=== PATIENT | female | born 1940 | race Caucasian/White ===

== ENCOUNTER 2016-12-09 16:50 | Inpatient (IN) | payer OTHER, MEDICARE, BC ==
[~2016-12-09] VITALS: Ht 170.2 cm; Wt 78.5 kg
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
--- NOTE | ~2016-12-09 | ENPV ---
Carotid Duplex Study Demographics Patient Name LEE ZAPIEN Date of Study 12/10/2016 Patient Number [id number] Gender Female Date of 1940 Age 76 Visit Number [id number] Height Accession Number [id number] Weight Room Number G6335 BSA BMI Referring Melina Moura Interpreting Danial Price MD Physician Physician Physician Ordering Physician Melina Moura Compliance Representative Software Configuration Engineer Bong Lopez BS, RT Conclusions Summary The right internal carotid artery has mild, 1-39%, plaque and stenosis. The left internal carotid artery has mild, 1-39%, plaque and stenosis. The right vertebral artery is present with antegrade flow. The left vertebral artery is present with antegrade flow. Calcific plaque at the bulb bilaterally. Procedure Type of Study: Cerebral:Carotid, Carotid Doppler Bilateral. Indications for Study:Syncope. Appropriate Use Criteria:9 Patient Status:Routine. Study Location:Inpatient Portable. Technical Quality:Adequate visualization. Velocities are measured in cm/s ; Diameters are measured in cm Carotid Right Measurements Carotid Left Measurements + +--------+--------+ + + + +--------+ --------+ + + !Location !PSV !EDV !Angle !%Stenosis ! !Location !PSV ! EDV !Angle !%Stenosis ! + +--------+--------+ + + + +--------+ --------+ + + !Prox CCA !117 !21 !60 ! ! !Prox CCA !131 ! 30 !60 ! ! + +--------+--------+ + + + +--------+ --------+ + + !Dist CCA !90 !22 !60 ! ! !Dist CCA !91 ! 23 !60 ! ! + +--------+--------+ + + + +--------+ --------+ + + !Prox ICA !99 !36 !60 ! ! !Prox ICA !84 ! 33 !60 ! ! + +--------+--------+ + + + +--------+ --------+ + + !Dist ICA !122 !33 !60 ! ! !Dist ICA !88 ! 34 !60 ! ! + +--------+--------+ + + + +--------+ --------+ + + !Prox ECA !107 ! !60 ! ! !Prox ECA !95 ! !60 ! ! + +--------+--------+ + + + +--------+ --------+ + + !Vertebral !59 ! !60 ! ! !Vertebral !43 ! !60 ! ! + +--------+--------+ + + + +--------+ --------+ + + !Subclavian !108 ! !60 ! ! !Subclavian !164 ! !60 ! ! + +--------+--------+ + + + +--------+ --------+ + + - There is antegrade vertebral flow noted on the right side. - There is antegrade verte bral flow noted on the left side. - Add'l Measurements:ICAPSV/CCAPSV 1.04.ICAEDV/CCAEDV 1.7. - Add'l Measurements:ICAPS V/CCAPSV 0.67.ICAEDV/CCAEDV 1.17. Signature dtt: REBA OSBORN dtd: 12/10/16 0844 Physician Self Edit
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
--- NOTE | ~2016-12-09 | ECHO ---
Transthoracic Echocardiography Report (TTE) Demographics Patient Name LEE ZAPIEN Date of Study 12/10/2016 Patient Number [id number] Visit Number [id number] Date of 1940 Room Number G6335 Gender Female Number Age 76 year(s) Referring Antonia Lopez Ward Supervisor Angélica Gonzalez RVT, Physician RDCS Physician Interpreting June Chicas Supervisor [employer] Physician A Supervising Ordering Melina Moura MD/MLP Physician Nurse Stress Acrobatic Dancer Conclusions Contractility Score Summary Normal Left Ventricular contractility was noted. Summary Exam done with patient laying supine. The estimated left ventricular ejection fraction is 60-65%. Mild concentric left ventricular hypertrophy. Diastolic assessment reveals Grade I diastolic dysfunction. Mild tricuspid regurgitation by color Doppler. There is mild pulmonary hypertension. The pulmonary pressure (RVSP) is 44 mmHg. Procedure Type of Study TTE procedure:2D Echocardiogram. Procedure Date Date: 12/10/2016 Start: 08:21 AM Study Location: Inpatient Portable Technical Quality: Adequate visualization Indications:Syncope. Appropriate Use Criteria: 8 Patient Status: Routine HR: 70 bpm BP: 156/76 mmHg M-Mode/2D Measurements LV Diastolic Dimension: 3.76 cm LV Systolic Dimension: 2.72 cm LV Septum Diastolic: 1.19 cm LV PW Diastolic: 1.17 cm AO Root Dimension: 2.4 cm Cardiac Output: 6.52 l/min AV Cusp Separation: 1.9 cm RV Diastolic Dimension: 2.45 cm LA Dimension: 1.8 cm LA volume: 41 ml LVOT: 2.2 cm RV Base: 3.49 cm LVOT VTI: 24.5 cm RV Mid: 2.82 cm LV Stroke volume: 93.09 ml RV Length: 7.83 cm TAPSE: 3.13 cm TDI-S': 13.3 cm/s Doppler Measurements AV Peak Velocity: 1.36 m/s MV Peak E-Wave: 0.55 m/s AV Peak Gradient: 7.4 mmHg MV Peak A-Wave: 0.76 m/s AV Mean Gradient: 5 mmHg MV E/A Ratio: 0.73 LVOT Peak Velocity: 1.15 m/s MV P1/2t: 66 msec TR Gradient:38.69 mmHg PV Peak Velocity: 1.07 m/s Estimated RAP:5 mmHg PV Peak Gradient: 4.58 mmHg Estimated RVSP: 44 mmHg Estimated PASP: 43.69 mmHg E' Septal Velocity: 0.07 m/s A' Septal Velocity: 0.11 m/s E' Lateral Velocity: 0.1 m/s A' Lateral Velocity: 0.15 m/s Findings Left Ventricle Mild concentric left ventricular hypertrophy. Diastolic assessment reveals Grade I diastolic dysfunction. Right Ventricle Normal right ventricle structure and function. Left Atrium Normal left atrial size. There is no evidence of patent foramen ovale or atrial septal defect by color Doppler. Right Atrium Normal right atrial size. IVC measures 2.22 cm with inspiratory collapse. Mitral Valve Normal mitral valve structure and function. Trivial mitral regurgitation by color Doppler. Aortic Valve Normal aortic valve structure and function. Tricuspid Valve Mild tricuspid regurgitation by color Doppler. There is mild pulmonary hypertension. The pulmonary pressure (RVSP) is 44 mmHg. Pulmonic Valve Normal pulmonic valve structure and function. Pericardial Effusion No evidence of pericardial effusion. Miscellaneous Visualized portions of the aortic root and ascending aorta appear normal in size. Pleural Effusion No evidence of pleural effusion. Contractility Score LV regional wall motion:(0-Non visualized 1-Normal 2-Hypokinesis 3-Akinesis 4-Dyskinesis 5-Aneurysm) Signature dtt: Arvin Watkins dtd: 12/10/16 0821 Physician Self Edit
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
--- NOTE | ~2016-12-09 | OR ---
PATIENT'S NAME: LEE ZAPIEN [facility] AGE: 76 Y [address] ROOM: [place] [address] LOCATION: GPCU ADMIT DATE: 12/09/2016 OR/Procedure Report DISCHARGE DATE: FAMILY PHYSICIAN: Shu Knight MD ATTENDING PHYSICIAN: Martell CAMPOS SURGEON: Calderon Tamayo MD FOOD DEMONSTRATOR: DATE OF PROCEDURE: 12/10/2016 PREPROCEDURE DIAGNOSIS: Symptomatic bradycardia with long pauses, syncopal episodes. POSTPROCEDURE DIAGNOSIS: Symptomatic bradycardia with long pauses, syncopal episodes. PROCEDURE: Placement of DDDR [employer] MRI DR pacemaker, model #:L111, RV gram. ANESTHESIA: Monitored anesthesia care with local. PROCEDURE: The patient's upper chest was prepped and draped. A small 4 cm incision was made in the subclavicular area and an inferiorly based pocket was created with cautery. An 18-gauge needle was then passed into the subclavian vein and a 035 J-wire passed. A 9-[place] sheath was passed over this. I had a lot of difficulty obtaining access to the RV. The wire and lead moved into the pulmonary artery easily, but I was not able to get into the apex. I therefore shot through the sheath in the AP and CAVANAUGH projections, 20 mL of full- strength contrast to evaluate the anatomy of the RA, the tricuspid valve area, and the RV. With this road mapping, I saw that the RV was quite small and I was able to steer the ventricular lead into the RV apex after this. The screw was extended and the parameters checked and were good. The J-wire was then passed through the 9-[place]ian sheath, which was then peeled away and the 6- [place] sheath was placed over the wire. The wire and dilator were removed. Atrial lead was passed into the atrium and then the U wire placed into it. The lead was positioned into the right atrial appendage and the screw extended. Wire was removed and the lead tested with good parameters. The leads were affixed to the prepectoral fascia with heavy silk sutures. The pulse generator was connected and placed into the pocket. The pocket was then sprinkled with Ancef powder and closed in layers. CALDERON TAMAYO MD PATIENT'S NAME: LEE ZAPIEN [facility] AGE: 76 Y [address] ROOM: [place] [address] LOCATION: [facility] ADMIT DATE: 12/09/2016 OR/Procedure Report DISCHARGE DATE: FAMILY PHYSICIAN: Shu Knight MD ATTENDING PHYSICIAN: Martell CAMPOS/modl /[id number] CC: Arvin Watkins MD d: 12/10/16 1733 t: 12/11/16 1023, OPERATIVE SUMMARY
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
[2016-12-09 17:14] LABS: BASOPHIL % 0.2 %; EOSINOPHIL # 0.1 K/uL (0.0-0.5); EOSINOPHIL % 0.5 %; HEMATOCRIT 36.1 % (33.0-46.0); HEMOGLOBIN 11.8 g/dL (10.0-15.0); IMMATURE GRANULOCYTE # 0.3 K/uL (0.0-0.3); IMMATURE GRANULOCYTE % 1.5 %; LYMPHOCYTE % 6.3 %; MCH 27.8 pg (27.0-34.0); MCHC 32.7 gm/dL (32.0-36.5); MCV 84.9 fl (83.0-98.0); MONOCYTE # 1.1 K/uL (0.0-1.0); MONOCYTE % 6.5 %; MPV 10.3 fl (9.4-12.4); NEUTROPHIL # (ANC) 13.7 K/uL (1.8-7.8); NRBC % 0 /100WBC (0-0.00); PLATELET COUNT 304 K/uL (150-450); RBC 4.25 M/uL (3.50-5.50); RDW-CV 13.9 % (11.9-14.6)
[2016-12-09 17:17] LABS: WBC 16.1 K/uL (4.0-11.0)
[2016-12-09 17:22] LABS: INR - (THERAPEUTIC) 1.02 (0.92-1.07); PROTIME 10.7 SECONDS (9.8-11.4); PTT 22 SECONDS (25-32)
[2016-12-09 18:13] LABS: ALBUMIN 3.7 gm/dL (3.5-5.0); ALK PHOS 94 IU/L (33-138); ALT 47 IU/L (12-78); ANION GAP 11.5 (10.0-19.0); AST 66 IU/L (10-40); BLOOD UREA NITROGEN 17 mg/dL (6-24); CALCIUM 9.7 mg/dL (8.5-10.5); CHLORIDE 108 mMol/L (96-110); CO2 25 mMol/L (22-32); CREATININE 0.9 mg/dL (0.5-1.1); ESTIMATED GFR (MDRD EQUATION) > 60; POTASSIUM 3.5 mMol/L (3.7-5.1); SODIUM 141 mMol/L (135-145); TOTAL BILIRUBIN 0.7 mg/dL (0.0-1.5); TOTAL PROTEIN 6.7 g/dL (6.0-8.4)
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
[2016-12-10 03:43] LABS: ALBUMIN 3.2 gm/dL (3.5-5.0); ALK PHOS 86 IU/L (33-138); ALT 40 IU/L (12-78); ANION GAP 9.7 (10.0-19.0); AST 42 IU/L (10-40); BLOOD UREA NITROGEN 15 mg/dL (6-24); CALCIUM 8.7 mg/dL (8.5-10.5); CHLORIDE 109 mMol/L (96-110); CO2 26 mMol/L (22-32); CREATININE 0.7 mg/dL (0.5-1.1); ESTIMATED GFR (MDRD EQUATION) > 60; MAGNESIUM 2.1 mg/dL (1.8-2.6); POTASSIUM 3.7 mMol/L (3.7-5.1); SODIUM 141 mMol/L (135-145); TOTAL BILIRUBIN 0.9 mg/dL (0.0-1.5); TOTAL PROTEIN 6.3 g/dL (6.0-8.4)
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
[2016-12-10 09:38] LABS: CPK 367 IU/L (21-215)
--- NOTE | 2016-12-10 13:30 | NUR ---
Chart reivewed in PACU. Patient sleeping will touch base with patient at a later time.
[2016-12-11 04:30] LABS: BASOPHIL % 0.2 %; EOSINOPHIL # 0.1 K/uL (0.0-0.5); HEMATOCRIT 36.4 % (33.0-46.0); HEMOGLOBIN 11.6 g/dL (10.0-15.0); IMMATURE GRANULOCYTE % 0.4 %; LYMPHOCYTE # 0.6 K/uL (0.8-4.0); LYMPHOCYTE % 6.6 %; MCH 27.6 pg (27.0-34.0); MCHC 31.9 gm/dL (32.0-36.5); MCV 86.7 fl (83.0-98.0); MONOCYTE # 0.9 K/uL (0.0-1.0); MPV 10.2 fl (9.4-12.4); NEUTROPHIL # (ANC) 7.4 K/uL (1.8-7.8); NEUTROPHIL % 81.8 %; NRBC % 0 /100WBC (0-0.00); WBC 9.1 K/uL (4.0-11.0)
[2016-12-11 04:31] LABS: PLATELET COUNT 205 K/uL (150-450)
[2016-12-11 04:43] LABS: ANION GAP 8.6 (10.0-19.0); BLOOD UREA NITROGEN 11 mg/dL (6-24); CALCIUM 9.1 mg/dL (8.5-10.5); CHLORIDE 108 mMol/L (96-110); CO2 27 mMol/L (22-32); CREATININE 0.6 mg/dL (0.5-1.1); ESTIMATED GFR (MDRD EQUATION) > 60; PHOSPHORUS 1.8 mg/dL (2.5-4.9); POTASSIUM 3.6 mMol/L (3.7-5.1); SODIUM 140 mMol/L (135-145)
--- NOTE | 2016-12-11 05:54 | NUR ---
Significant Event: Patient alert and oriented x3. Forgetful at times. Repetitive at times. SBP 140s-170s. Patient frequently moves arm when blood pressure cuff pumping. On 2-3L O2. Patient continually complained of severe pain to lower back. Todd given x2, total of 8mg Morphine given, Percocet x1, and Zofran x1 given for nausea from pain. All given with little relief. Patient slept little this shift. Repositioned as needed. Garner patent with 500ml uop. Teary eyed and emotional on and off throughout shift. Calm and cooperative with all cares. Follow up: Vertebroplasty Tuesday. Will continue to monitor and treat pain.
--- NOTE | 2016-12-11 16:04 | NUR ---
Significant Event: A/Ox3. Forgetful at times. [id number]. P-70-80s. SR with BBB. Afebrile. Room air while awake and 1-2L while sleeping. Patient takes shallow breaths Intentive spirometry encouraged. Lungs Clear and clear diminished in the bases. LSO brace for activity. Left on at all times due to patients impulsiveness. L) pacer site dressing, C/D/I. [place] 1 tab given x3 last dose was around 1415. Patients pain has been controlled. Patient ambulated x2. Garner discontineud patient had voided since. 250ml and 1 vd for urine output. No BM this shift. Up with 1A.
--- NOTE | 2016-12-12 06:57 | NUR ---
Significant Event: Patient alert and oriented x3. SBP 100s-140s. All other vital signs stable. On RA-1L O2. Complaints of pain to back and chest throughout shift. Percocet 2 tabs given x2. [place] given x1. LSO brace continues. Immobilizer continues to left arm. Patient takes arm out on occasion. RN educated patient of risks. Patient has left alone since. Left pacemaker dressing C/D/I. Good uop throughout shift. Up with 2 assist in room. Slept well this shift. Calm and cooperative with all cares. Follow up: Will continue to monitor and treat pain.
--- NOTE | 2016-12-12 17:27 | NUR ---
Significant Event: A/Ox3. Forgetful at times. [id number]. P-70-80s. Afebrile. Room air while awake and 1-2L while sleeping. NPO after midnight for vertebralplasty planned for tomorrow at [address] Verma. LSO brace on patient at all times due to impulsive behavior at times. L) arm immobilizer intact. L) pacer dresing C/D/I. Patient had increased pain in lower back today. Percocet 1 tab given x2 last dose at 1034, [place] x1 last at 1502, and morphine 2mg IVP x1 around 1040 for breakthrough pain. Up in chair and abmbulated x1 with 1-2A.
[2016-12-13 05:00] LABS: BASOPHIL % 0.4 %; EOSINOPHIL # 0.4 K/uL (0.0-0.5); EOSINOPHIL % 4.5 %; HEMATOCRIT 35.8 % (33.0-46.0); HEMOGLOBIN 11.1 g/dL (10.0-15.0); IMMATURE GRANULOCYTE % 0.4 %; LYMPHOCYTE # 0.8 K/uL (0.8-4.0); LYMPHOCYTE % 10.6 %; MCH 26.8 pg (27.0-34.0); MCV 86.5 fl (83.0-98.0); MONOCYTE # 0.9 K/uL (0.0-1.0); MONOCYTE % 12.2 %; MPV 10.5 fl (9.4-12.4); NEUTROPHIL # (ANC) 5.5 K/uL (1.8-7.8); NEUTROPHIL % 71.9 %; NRBC % 0 /100WBC (0-0.00); PLATELET COUNT 166 K/uL (150-450); RBC 4.14 M/uL (3.50-5.50); WBC 7.7 K/uL (4.0-11.0)
[2016-12-13 05:14] LABS: ALBUMIN 2.8 gm/dL (3.5-5.0); ANION GAP 9.7 (10.0-19.0); BLOOD UREA NITROGEN 12 mg/dL (6-24); CALCIUM 9.5 mg/dL (8.5-10.5); CHLORIDE 103 mMol/L (96-110); CO2 30 mMol/L (22-32); CREATININE 0.5 mg/dL (0.5-1.1); ESTIMATED GFR (MDRD EQUATION) > 60; POTASSIUM 3.7 mMol/L (3.7-5.1); SODIUM 139 mMol/L (135-145)
[2016-12-13 05:15] LABS: PHOSPHORUS 1.9 mg/dL (2.5-4.9)
--- NOTE | 2016-12-13 07:37 | NUR ---
Significant Event: Patient alert and oriented x3. Forgetful at times. Disoriented upon first waking up. SBP 100s-130s. All other vital signs stable. On 1-2L O2. Complaints of pain to lower back throughout shift. Percocet 2 tabs given with relief. LSO brace continues. Immobilizer continues to left arm. Patient removes frequently despite RN education. Left pacemaker dressing C/D/I. Good uop. Up with 1 assist to bathroom. Slept well this shift. Calm and cooperative with all cares. Follow Up: Vertebroplasty today at 1500.
--- NOTE | 2016-12-13 15:17 | NUR ---
Introduced self and role of care management to patient and her family. She lives in [place] by herself. She states that she is normally able to do all her own ADL's. She has family that assists as needed. We discussed her discharge plans. She would like to go to [facility] in [place] for a skilled stay to "get back on her feert" before going home. I called and spoke with Crystal SEE at [facility] and faxed referral information. Will continue to follow.
--- NOTE | 2016-12-13 16:00 | NUR ---
A&O X2 -CONFUSED HX OF DEMENTIA. 1PA. C/O PAIN EARLY THIS AM PERC2 TABS AND MORPHINE GIVEN. NO C/O PAIN SINCE. SBP 120'S. HR 70'S. WEAN RA. AFEBRILE. LS CLEAR. BS ACTIVE. VD PER BP/COMMODE. NO BM TODAY. LSO BRACE ON. L ARM IMMOBILIZED/ SLING DSG CDI FROM PACER 12/12. CSM WNL. NPO FOR KYPHOPLASTY THIS AFTERNOON, LEFT AT 1405 FOR PROCEDURE. PRIOR TO PROCEDURE PT FAMILY HAD CONCERNS ABOUT INCREASED CONFUSION, PT WAS TO ME BASELINE FROM THIS MORNING , THEY THOUGH IT MIGHT BE MEDS BUT SHE HADNT HAD ANYTHING SINCE 07 AND IT WAS NOW 140[address]. [address] GOULD OF FAMILY CONCERN HE STATED [facility] SINCE ASSESSMNET STILL SAME NO OTHER CHANGES HE IS HAPPY TO COME RE EVALUATE IF NEED BE. FAMILY SEEMED UNHAPPY. PLAN IS [facility] MD IN [facility] WHEN READY.
--- NOTE | 2016-12-14 03:49 | NUR ---
Significant Event: Disorientation comes and goes. Forgetful upon waking. Alert to person and month. Forgets she is in [place]. VSS on 1L O2. LSO brace on. Immobilizer brace to left arm intact. Morphine, [place], and Percocet for pain control this shift. Up to BSC with 1PA, hands on. NS at 75 ml/hr into right hand with no complications. Rested well after pain medication. Alarms on. Follow up: Continue with plan of care.
[2016-12-14 05:14] LABS: BASOPHIL % 0.7 %; EOSINOPHIL # 0.3 K/uL (0.0-0.5); EOSINOPHIL % 5.4 %; HEMATOCRIT 32.9 % (33.0-46.0); HEMOGLOBIN 10.4 g/dL (10.0-15.0); IMMATURE GRANULOCYTE % 0.5 %; LYMPHOCYTE # 0.9 K/uL (0.8-4.0); LYMPHOCYTE % 15.4 %; MCH 27.3 pg (27.0-34.0); MCHC 31.6 gm/dL (32.0-36.5); MCV 86.4 fl (83.0-98.0); MONOCYTE # 0.8 K/uL (0.0-1.0); MONOCYTE % 13.4 %; NEUTROPHIL # (ANC) 3.8 K/uL (1.8-7.8); NEUTROPHIL % 64.6 %; NRBC % 0 /100WBC (0-0.00); PLATELET COUNT 153 K/uL (150-450); RBC 3.81 M/uL (3.50-5.50); WBC 5.9 K/uL (4.0-11.0)
--- NOTE | 2016-12-14 14:07 | NUR ---
A-SCREENED D/T LOS CONFUSED; HX OF DEMENTIA. L)ARM IN A SLING. PACER 12/12. KYPHOPLASTY ON 12/13. HT: 67 IN. WT: 79.5 KG. BMI: 27.4 LABS: NA 139, K+ 3.7, GLU 102, BUN 12, PETS AND PET SUPPLIES SALESPERSON 0.5, ALB 2.8 MEDS: PERCOCET, MORPHINE, ARICEPT, ZOFRAN DIET RX: REGULAR. PO INTAKE [id number]. ONE MEAL OF 75%. EST NUTR NEEDS: 4414-5172 KCALS (25-30 KCALS/KG) 64-88 GM PROTEIN (0.8-1.1 GM/KG) 1 ML FLUID/KCAL D-AT NUTRITION RISK W/INADEQUATE ORAL INTAKE R/T ALTERED MENTAL STATUS, POOR APPETITE AEB INTAKE RECORDS, CHART REVIEW, NPO FOR PROCEDURES I-START ENSURE ENLIVE BID TO PROVIDE ADDITIONAL NUTRIENTS M/E-GOAL: PO INTAKE >/=50% BY DISCHARGE 1)F/U PO INTAKE, SUPPLEMENT, AND POC IN 2-4 DAYS 2)ASSIST NEEDED
--- NOTE | 2016-12-14 15:15 | NUR ---
Received a call from Crystal SEE at [facility] in [place]. They can accept patient for admission on 12/15. They will be here for transprot at 10am. Updated Eve, her daughter Noa and attempted to call her brothers deanne but got no answer. Orders on chart, Packet at desk, ID screen in packet.
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
[2016-12-15 04:18] LABS: BASOPHIL # 0.1 K/uL (0.0-0.2); BASOPHIL % 0.9 %; EOSINOPHIL # 0.5 K/uL (0.0-0.5); HEMATOCRIT 35.3 % (33.0-46.0); HEMOGLOBIN 11.4 g/dL (10.0-15.0); IMMATURE GRANULOCYTE % 0.5 %; LYMPHOCYTE # 0.9 K/uL (0.8-4.0); LYMPHOCYTE % 13.7 %; MCH 27.7 pg (27.0-34.0); MCHC 32.3 gm/dL (32.0-36.5); MCV 85.7 fl (83.0-98.0); MONOCYTE # 0.8 K/uL (0.0-1.0); MONOCYTE % 12.8 %; MPV 10.4 fl (9.4-12.4); NEUTROPHIL # (ANC) 4.1 K/uL (1.8-7.8); NEUTROPHIL % 64.1 %; NRBC % 0 /100WBC (0-0.00); PLATELET COUNT 183 K/uL (150-450); RBC 4.12 M/uL (3.50-5.50); WBC 6.4 K/uL (4.0-11.0)
[2016-12-15 04:32] LABS: ALBUMIN 2.7 gm/dL (3.5-5.0); ANION GAP 10.5 (10.0-19.0); BLOOD UREA NITROGEN 13 mg/dL (6-24); CALCIUM 9.8 mg/dL (8.5-10.5); CHLORIDE 104 mMol/L (96-110); CO2 29 mMol/L (22-32); CREATININE 0.6 mg/dL (0.5-1.1); ESTIMATED GFR (MDRD EQUATION) > 60; MAGNESIUM 2.1 mg/dL (1.8-2.6); PHOSPHORUS 2.8 mg/dL (2.5-4.9); POTASSIUM 3.5 mMol/L (3.7-5.1); SODIUM 140 mMol/L (135-145)
--- NOTE | 2016-12-15 09:00 | NUR ---
[facility] They will be here to transport patient at 10am. Orders faxed.
--- NOTE | 2016-12-15 09:58 | NUR ---
PATIENT UP TO CHAIR W/ 1 ASSIST AND WALKER/GAIT BELT. LAST VITALS TEMP 98.0, HR 86, RR 16, BP 131/76, SATS 91% ON RA. PATIENT CONTINUES TO BE CONFUSED, STATES SHE KNOWS SHE IS AT [facility] AND KNOWS IT IS NOVEMBER BUT DOES NOT REMEMBER EXACT DATE. LSO BRACE ON WHEN UP. ARM IMMOBILIZER ON LEFT ARM. BED ALARM/CHAIR ALARM ON FOR SAFETY. PASSING GAS BUT NO BM TODAY. 1 PERCOCET AT 08:46 FOR BACK PAIN W/ PARTIAL RELIEF.
--- NOTE | 2016-12-15 17:48 | NUR ---
PATIENT TRANSFERED TO [facility] AT 10:05 PER [facility] STAFF. REPORT CALLED TO NURSE AT [facility]. REVIEWED PATIENT'S NEURO ASSESSMENT, FALL RISK, LAST BM, LAST VITALS, LAST PAIN MEDS GIVEN AND SKIN ASSESSMENT. PATIENT ASSISTED TO W/C AND TO VEHICLE WITH 1 ASSIST BY NURSE AID.
== END 2016-12-15 10:15 | DRG 243 ==
LOC: GACC 16:50 → GPCU 19:47
PROVIDERS: Emergency Medicine; Family Medicine; Internal Medicine Cardiovascular Disease; ADMIT Internal Medicine
DX: I49.5 Sick sinus syndrome (principal); S22.32XA Fracture of one rib, left side, initial encounter for closed fracture; S32.019A Unspecified fracture of first lumbar vertebra, initial encounter for closed fracture; I27.2 Other secondary pulmonary hypertension; S32.029A Unspecified fracture of second lumbar vertebra, initial encounter for closed fracture; V49.9XXA Car occupant (driver) (passenger) injured in unspecified traffic accident, initial encounter; S02.2XXA Fracture of nasal bones, initial encounter for closed fracture; M47.892 Other spondylosis, cervical region; M81.0 Age-related osteoporosis without current pathological fracture; R55 Syncope and collapse; I10 Essential (primary) hypertension; G30.9 Alzheimer's disease, unspecified; F02.80 Dementia in other diseases classified elsewhere, unspecified severity, without behavioral disturbance, psychotic disturbance, mood disturbance, and anxiety; K21.9 Gastro-esophageal reflux disease without esophagitis; E78.00 Pure hypercholesterolemia, unspecified; I44.7 Left bundle-branch block, unspecified; Z87.891 Personal history of nicotine dependence; Z96.642 Presence of left artificial hip joint
CPT/HCPCS: C1713; C1785; C1898; J0690; J1650; J2270; J2405; J3010; J3480; J7030; J7040; J7050; Q9967

== ENCOUNTER → 2016-12-09 | Outpatient (CLI) | payer MEDICARE, BC ==
[~2016-12-09] MED LIST: ARICEPT10 MG PO; COZAAR50 MG PO
== END | disposition disaster alternative care site (69) ==
LOC: GAMB 16:12
DX: S39.92XA Unspecified injury of lower back, initial encounter (principal); M54.5 Low back pain; M25.561 Pain in right knee; R07.89 Other chest pain; Z79.899 Other long term (current) drug therapy; Z88.6 Allergy status to analgesic agent; V49.9XXA Car occupant (driver) (passenger) injured in unspecified traffic accident, initial encounter
CPT/HCPCS: J3010; Q9967